=== PATIENT | male | born 1975 | race Caucasian/White ===

== ENCOUNTER 2020-11-27 17:37 | Emergency (ER) | payer OTHER, SELFPAY ==
[2020-11-27 17:45] VITALS: BP 127/77; PULSE 80; RESP 20; TEMP 36.9; O2SAT 98; BMI 25.3
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
--- NOTE | 2020-11-27 17:56 | XRR_ITS ---
PROCEDURE INFORMATION: Exam: XR Left Knee Exam date and time: 11/27/2020 6:27 PM Age: 45 years old Clinical indication: Pain; Knee; Left TECHNIQUE: Imaging protocol: XR Left knee. Views: 3 views. COMPARISON: No relevant prior studies available. FINDINGS: Bones/joints: There is a curvilinear bone fragment parallel to the lateral aspect of the tibial plateau consistent with a Segond fracture of unknown chronicity. Soft tissues: Normal. XR/XR knee LT 3V* [id number] IMPRESSION: There is a curvilinear bone fragment parallel to the lateral aspect of the tibial plateau consistent with a Segond fracture of unknown chronicity. This is commonly seen with anterior cruciate ligament injury. Recommend MRI of the knee for further evaluation.
[2020-11-27] MEDS: HYDROcodone-acetaminophen 5-325 mg Tablet 1 TAB PO (18:07)
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
[2020-11-27 19:43] VITALS: BP 116/73; PULSE 92; RESP 22; O2SAT 98
== END 2020-11-27 19:25 | disposition home or self-care (01) ==
LOC: ER 19:23
PROVIDERS: Emergency Provider Emergency Medicine
DX: S83.92XA Sprain of unspecified site of left knee, initial encounter (principal); S40.012A Contusion of left shoulder, initial encounter; V86.56XA Driver of dirt bike or motor/cross bike injured in nontraffic accident, initial encounter
CPT/HCPCS: 29530; 73030; 73562; 73590; 99283; E0114